=== PATIENT | female | born 1960 ===

== ENCOUNTER 2018-03-19 13:55 | Day surgery (SDC) | payer OTHER ==
--- NOTE | 2018-03-19 08:40 | PDHPUP ---
History & Physical Update H&P update statement: This history and physical update is based on an assessment of the patient which was completed after admission or registration (within 24 hours), but prior to the surgery/procedure. H&P update: H&P reviewed & patient examined, no change in patient's condition since H&P completed
[2018-03-19] MEDS ORDERED: ceFAZolin 2 GM/DEXTROSE 100 ML IV ONE (14:10)
[2018-03-19] MEDS ORDERED: LIDOCAINE 1% 2 ML INJ ID PRN (14:18)
[2018-03-19] MEDS ORDERED: LR 1,000 ML IV ONE (14:18)
--- NOTE | 2018-03-19 15:02 | POSTANESTH ---
Post Anesthetic Evaluation Cardiovascular Status: Normal, Stable Respiratory Status: Normal, Stable Level of Consciousness/Mental Status: Can Participate in Eval, Mildly Sleepy, Arousable Pain Control: Adequate, Prn Tx Ordered Nausea/Vomiting Control: Adequate, Prn Tx Ordered Complications Possibly Related to Anesthesia: None Noted
--- NOTE | 2018-03-19 15:03 | PDANEPAE ---
ANE History of Present Illness 57 yo female with gastric cancer for port placement. ANE Past Medical History - Cardiovascular History Hx Hypertension: No Hx Arrhythmias: No Hx Chest Pain: No Hx Coronary Artery / Peripheral Vascular Disease: No Hx CHF / Valvular Disease: No Hx Palpitations: No - Pulmonary History Hx COPD: No Hx Asthma/Reactive Airway Disease: No Hx Recent Upper Respiratory Infection: No Hx Oxygen in Use at Home: No Hx Sleep Apnea: No Sleep Apnea Screening Result - Last Documented: Negative - Neurologic History Hx Cerebrovascular Accident: No Hx Seizures: No Hx Dementia: No - Endocrine History Hx Diabetes: No Hypothyroid: No Hyperthyroid: No Obesity: no - Renal History Hx Renal Disorders: No - Liver History Hx Hepatic Disorders: No - Neurological & Psychiatric Hx Hx Neurological and Psychiatric Disorders: No - Cancer History Hx Cancer: Yes Cancer History Comment: Gastric Cancer - Congenital Disorder History Hx Congenital Disorders: No - GI History Hx Gastrointestinal Disorders: Yes Gastrointestinal History Comment: Gastric Cancer - Other Health History Other Health History: NEG - Chronic Pain History Chronic Pain: No - Surgical History Prior Surgeries: L ANKLE REPAIR 2010 ANE Review of Systems Review of Systems: - Exercise capacity METS (RN): 4 METS - Systems Constitutional: Reports: weight loss Cardiac: Reports: no symptoms Respiratory: Reports: no symptoms ANE Patient History - Allergies Allergies/Adverse Reactions: No Known Allergies Allergy (Verified 02/22/14 08:58) - Home Medications Home Medications: GLUCOSAMINE-MSM CAPLET 03/19/18 [Last Taken 3 Days Ago ~03/16/18] Gabapentin 100 mg BID 03/19/18 [Last Taken 03/18/18] - NPO status NPO Since - Liquids (Date): 03/19/18 NPO Since - Liquids (Time): 11:30 NPO Since - Solids (Date): 03/19/18 NPO Since - Solids (Time): 03:30 - Anes Hx Anes Hx: no prior problems - Smoking Hx Smoking Status: Never smoked Marijuana use: No - Alcohol Use Alcohol Use: None - Family Anes Hx Family Anes Hx: neg - N/A Family Hx Anesthesia Complications: NEG ANE Labs/Vital Signs - Vital Signs Blood Pressure: 116/74 Heart Rate: 68 Respiratory Rate: 15 O2 Sat (%): 97 Height: 154.94 cm Weight: 49.895 kg ANE Physical Exam - Airway Neck exam: FROM Mallampati Score: Class 1 Mouth exam: normal dental/mouth exam - Pulmonary Pulmonary: clear to auscultation - Cardiovascular Cardiovascular: regular rate and rhythym - ASA Status ASA Status: II ANE Anesthesia Plan Anesthesia Plan: GA with mask Total IV Anesthesia: Yes
[2018-03-19] MEDS ORDERED: LIDOCAINE 2% 5 ML SDV ONE (15:47)
[2018-03-19] MEDS ORDERED: fentaNYL 100 MCG/2 ML INJ ONE (15:47)
[2018-03-19] MEDS ORDERED: PROPOFOL/EMULSION 500 MG/50 ML BOTTLE IV ONE (15:48)
[2018-03-19] MEDS ORDERED: BUPIVACAINE/EPI 0.25% 30 ML SDV ONE (15:50)
[2018-03-19] MEDS ORDERED: NALOXONE HCL 0.4 MG/ML INJ IVP PRN (16:32)
[2018-03-19] MEDS ORDERED: fentaNYL 100 MCG/2 ML INJ IVP PRN (16:32)
[2018-03-19] MEDS ORDERED: ONDANSETRON 4 MG/2 ML VIAL IVP PRN (16:32)
[2018-03-19] MEDS ORDERED: ACETAMINOPHEN 500 MG TAB PO PRN (16:32)
[2018-03-19] MEDS ORDERED: LR 500 ML IV PRN (16:32)
[2018-03-19] MEDS ORDERED: KETOROLAC 30 MG/1 ML SDV ONE (16:33)
[2018-03-19 18:02] VITALS: BP 126/78
--- NOTE | 2018-03-22 17:44 | GOP ---
DATE OF OPERATION: 03/19/2018 SURGEON: Hill Meneses MD FLY WORKER: None. ANESTHESIA: General endotracheal anesthesia. ANESTHESIOLOGIST: Roopa Morales MD PREOPERATIVE DIAGNOSIS: Metastatic gastric cancer. POSTOPERATIVE DIAGNOSIS: Metastatic gastric cancer. PROCEDURE PERFORMED: Ultrasound-guided right PowerPort placement with intraoperative fluoroscopic gu idance into the right internal jugular vein. FINDINGS: Successful identification and cannulation of the right internal jugular vein. The port wa s successfully threaded and placed appropriately. It both flushed and withdrew appropriately. It was heparin locked. SPECIMENS: None. ESTIMATED BLOOD LOSS: 5 cc. DESCRIPTION OF PROCEDURE: The patient was greeted in the preoperative suite. Once again, risks, ary efits, and alternatives were discussed. Consent was signed. She was then brought back to the operat joseph suite, placed on the OR table in supine position. After all anesthesia machines including SCDs w ere on and functioning, a [employer] time-out was performed. After successful inducti on of general anesthesia, the patient's right neck and chest was prepped and draped in typical steril e fashion. I commenced the procedure using an ultrasound to identify the right internal jugular vein . Once identified, the overlying skin and soft tissue was successfully anesthetized with lidocaine. After successful anesthetization, I successfully cannulated the vein with a single stick. The guide wire was threaded and sized appropriately with intraoperative fluoroscopic guidance. The site was th en selected just beneath the clavicle. A skin pocket was made. The port tubing was then tunneled fr om the pocket to the stick site and placed through the peel-away sheath catheter, and sized the atria l caval junction appropriately. It was then trimmed and attached to the port, it both flushed and wi thdrew appropriately. The port was then placed within the pocket, it was heparin locked and attached to the underlying subcutaneous tissue with an interrupted Prolene stitch. The skin was then closed in layers, first with an interrupted 3-0 Vicryl followed by 4-0 Monocryl over which Dermabond was jasper princess. The patient was then extubated in the operative suite and taken to the PACU in satisfactory con dition. All counts reported as correct x2. DRAINS: None. /[id number]/MODL
== END 2018-03-19 18:26 | disposition home or self-care (01) ==
LOC: FSGY 13:55
PROVIDERS: ATTEND Surgery
PROC: 0JH60XZ Insertion of Tunneled Vascular Access Device into Chest Subcutaneous Tissue and Fascia, Open Approach (ICD-10-PCS; principal; 2018-03-19 15:30)
PROC: B5181ZA Fluoroscopy of Superior Vena Cava using Low Osmolar Contrast, Guidance (ICD-10-PCS; principal; 2018-03-19 15:30)
PROC: 02HV33Z Insertion of Infusion Device into Superior Vena Cava, Percutaneous Approach (ICD-10-PCS; principal; 2018-03-19 15:30)
DX: C16.2 Malignant neoplasm of body of stomach (principal); R59.0 Localized enlarged lymph nodes
CPT/HCPCS: C1788; J0690; J1642; J1885; J2704; J3010